=== PATIENT | female | born 1935 | race Caucasian/White ===

== ENCOUNTER 2018-04-11 18:18 | Emergency (ER) | payer OTHER ==
[~2018-04-11] VITALS: Ht 152.4 cm; Wt 57.6 kg
[2018-04-11 18:39] VITALS: Ht 152.4 cm; Wt 57.6 kg
[2018-04-11 21:41] LABS: BASOPHIL % 0.3 % (0-2); PLATELET COUNT 253 x10^3mcL (130-400); RED CELL DISTRIBUTION WIDTH 13.6 % (11.5-14.5)
[2018-04-11 21:49] LABS: CALCIUM 8.8 mg/dL (8.5-10.1); CARBON DIOXIDE 24.4 mmol/L (21-32); CHLORIDE SERUM 106 mmol/L (98-107); CREATININE SERUM 1.5 mg/dL (0.6-1.0); GLUCOSE SERUM 140 mg/dL (74-106); POTASSIUM SERUM 4.5 mmol/L (3.5-5.1); SODIUM SERUM 142 mmol/L (136-145)
[2018-04-11 21:56] LABS: ALBUMIN 4.4 g/dL (3.4-5.0); ALKALINE PHOSPHATASE 71 U/L (46-116); ALT/SGPT 18 U/L (14-59); AST/SGOT 13 U/L (15-37); BILIRUBIN TOTAL 0.4 mg/dL (0.20-1.00); TOTAL PROTEIN, SERUM 7.4 g/dL (6.4-8.2)
[2018-04-11 23:16] VITALS: BP 103/54
== END 2018-04-11 23:16 | disposition home or self-care (01) ==
LOC: ED 18:18
PROVIDERS: Emergency Medicine
DX: R11.2 Nausea with vomiting, unspecified (principal); R19.7 Diarrhea, unspecified; R42 Dizziness and giddiness; I10 Essential (primary) hypertension; E11.9 Type 2 diabetes mellitus without complications; E05.90 Thyrotoxicosis, unspecified without thyrotoxic crisis or storm
CPT/HCPCS: J2405; J7030

== ENCOUNTER 2018-04-27 20:18 | Inpatient (IN) | payer OTHER ==
[~2018-04-27] VITALS: Ht 152.4 cm; Wt 54.6 kg
[2018-04-27 20:21] VITALS: Ht 152.4 cm; Wt 54.6 kg
[2018-04-27 21:02] LABS: BASOPHIL % 0.5 % (0-2); PLATELET COUNT 285 x10^3mcL (130-400); RED CELL DISTRIBUTION WIDTH 13.6 % (11.5-14.5)
[2018-04-27 22:24] LABS: CALCIUM 9.1 mg/dL (8.5-10.1); CARBON DIOXIDE 18.2 mmol/L (21-32); CHLORIDE SERUM 106 mmol/L (98-107); CREATININE SERUM 1.3 mg/dL (0.6-1.0); GLUCOSE SERUM 160 mg/dL (74-106); POTASSIUM SERUM 3.9 mmol/L (3.5-5.1); SODIUM SERUM 140 mmol/L (136-145)
[2018-04-27 22:37] LABS: ALBUMIN 4.3 g/dL (3.4-5.0); ALKALINE PHOSPHATASE 97 U/L (46-116); ALT/SGPT 17 U/L (14-59); AST/SGOT 17 U/L (15-37); BILIRUBIN TOTAL 0.4 mg/dL (0.20-1.00); FREE T4 1.38 ng/dL (0.76-1.46); TOTAL PROTEIN, SERUM 7.4 g/dL (6.4-8.2)
[2018-04-27] MEDS ORDERED: LISINOPRIL10 MG PO (22:41)
[2018-04-27] MEDS ORDERED: GOOD SENSE OMEP20 MG PO (22:42)
[2018-04-27] MEDS ORDERED: DONEPEZIL HYDROC5 M3 PO (22:42)
[2018-04-27] MEDS ORDERED: VENLAFAXINE37.5 M2 PO (22:42)
[2018-04-27] MEDS ORDERED: METFORMIN HYDR500 M1 PO (22:42)
[2018-04-27 22:53] LABS: microscopic required? YES; urine erythrocyte TRACE (NEGATIVE)
[2018-04-27 23:51] VITALS: BP 125/66
[2018-04-28] VITALS (9 sets, daily range): BP systolic 103–148; BP diastolic 46–63
[2018-04-28 00:11] LABS: AMYLASE 50 U/L (25-115); LIPASE 188 IU/L (73-393)
[2018-04-28 00:22] LABS: FREE T4 1.41 ng/dL (0.76-1.46); FREE THYROXINE INDEX 3.7 ug/dL (1.4-4.5); T4(THYROXINE) 11.3 ug/dL (4.7-13.3)
[2018-04-28 00:36] LABS: T3 TOTAL 1.12 ng/mL
[2018-04-28 06:57] LABS: BASOPHIL % 0.7 % (0-2); PLATELET COUNT 224 x10^3mcL (130-400); RED CELL DISTRIBUTION WIDTH 13.9 % (11.5-14.5)
[2018-04-28 07:38] LABS: CALCIUM 8.7 mg/dL (8.5-10.1); CARBON DIOXIDE 25.3 mmol/L (21-32); CHLORIDE SERUM 109 mmol/L (98-107); CREATININE SERUM 1.3 mg/dL (0.6-1.0); GLUCOSE SERUM 146 mg/dL (74-106); HDL CHOLESTEROL 42 mg/dL (40-60); MAGNESIUM 2.1 mg/dL (1.8-2.4); PHOSPHOROUS 3.8 mg/dL (2.5-4.9); SODIUM SERUM 143 mmol/L (136-145)
[2018-04-28 10:33] LABS: CHOLESTEROL 181 mg/dL (<200); CHOLESTEROL/HDL RATIO 4.3; TRIGLYCERIDES 225 mg/dL (<150)
[2018-04-28] MEDS ORDERED: CLOPIDOGREL75 M1 PO (22:09)
[2018-04-28] MEDS ORDERED: METOPROLOL TART25 M1 PO (22:09)
[2018-04-28] MEDS ORDERED: LIPI10 PO (22:09)
[2018-04-28] MEDS ORDERED: ECO81 PO (22:10)
[2018-04-28] MEDS ORDERED: GLU500 PO (22:11)
== END 2018-04-28 22:48 | disposition short-term general hospital (02) | DRG 311 ==
LOC: ED 20:18 → DU 23:08
PROVIDERS: Emergency Medicine; Family Medicine
DX: I24.9 Acute ischemic heart disease, unspecified (principal); N17.0 Acute kidney failure with tubular necrosis; K21.9 Gastro-esophageal reflux disease without esophagitis; E86.0 Dehydration; E11.51 Type 2 diabetes mellitus with diabetic peripheral angiopathy without gangrene; F32.9 Major depressive disorder, single episode, unspecified; E03.9 Hypothyroidism, unspecified; R31.9 Hematuria, unspecified; I10 Essential (primary) hypertension; R80.9 Proteinuria, unspecified; D72.829 Elevated white blood cell count, unspecified; E78.5 Hyperlipidemia, unspecified; F03.90 Unspecified dementia, unspecified severity, without behavioral disturbance, psychotic disturbance, mood disturbance, and anxiety; Z68.24 Body mass index [BMI] 24.0-24.9, adult; Z79.84 Long term (current) use of oral hypoglycemic drugs; Z86.73 Personal history of transient ischemic attack (TIA), and cerebral infarction without residual deficits
CPT/HCPCS: 83880; 84439; J1642; J1644; J2060; J7030; Q0092

== ENCOUNTER 2019-01-28 12:17 | Emergency (ER) | payer OTHER, MEDICAID ==
[~2019-01-28] VITALS: Ht 149.9 cm; Wt 52.2 kg
[~2019-01-28 12:17] MED LIST: CLOPIDOGREL75 M1 PO; DONEPEZIL HYDROC5 M3 PO; ECO81 PO; GLU500 PO; GOOD SENSE OMEP20 MG PO; LIPI10 PO; LISINOPRIL10 MG PO; METFORMIN HYDR500 M1 PO; METOPROLOL TART25 M1 PO; VENLAFAXINE37.5 M2 PO
[2019-01-28 12:38] VITALS: Ht 149.9 cm; Wt 52.2 kg
[2019-01-28 13:48] LABS: BASOPHIL % 0.9 % (0-2); PLATELET COUNT 249 x10^3mcL (130-400)
[2019-01-28 13:49] LABS: CALCIUM 8.5 mg/dL (8.5-10.1); CARBON DIOXIDE 27.3 mmol/L (21-32); CHLORIDE SERUM 105 mmol/L (98-107); GLUCOSE SERUM 114 mg/dL (74-106); POTASSIUM SERUM 3.6 mmol/L (3.5-5.1); SODIUM SERUM 140 mmol/L (136-145)
[2019-01-28 13:55] LABS: ALBUMIN 3.7 g/dL (3.4-5.0); ALKALINE PHOSPHATASE 68 U/L (46-116); ALT/SGPT 26 U/L (14-59); AST/SGOT 20 U/L (15-37)
[2019-01-28 14:40] LABS: UA SPECIFIC GRAVITY 1.015 (1.005-1.035); microscopic required? YES; urine erythrocyte 1+ (NEGATIVE)
[2019-01-28 15:15] VITALS: BP 135/91
== END 2019-01-28 15:15 | disposition home or self-care (01) ==
LOC: ED 12:17
PROVIDERS: Emergency Medicine
DX: J06.9 Acute upper respiratory infection, unspecified (principal); I10 Essential (primary) hypertension; E11.9 Type 2 diabetes mellitus without complications; E03.9 Hypothyroidism, unspecified; F32.9 Major depressive disorder, single episode, unspecified
CPT/HCPCS: 36415; 87804; Q0092

== ENCOUNTER 2019-05-23 12:48 | Emergency (ER) | payer OTHER, MEDICAID ==
[~2019-05-23] VITALS: Ht 152.4 cm; Wt 53.5 kg
[2019-05-23 13:01] VITALS: Ht 152.4 cm; Wt 53.5 kg
[2019-05-23 14:08] VITALS: BP 124/70
== END 2019-05-23 14:08 | disposition home or self-care (01) ==
LOC: ED 12:48
DX: M25.552 Pain in left hip (principal); I10 Essential (primary) hypertension; Z95.1 Presence of aortocoronary bypass graft; Z90.710 Acquired absence of both cervix and uterus; Z90.49 Acquired absence of other specified parts of digestive tract
CPT/HCPCS: J1885

== ENCOUNTER 2019-10-08 13:31 | Emergency (ER) | payer BC, MEDICAID ==
[~2019-10-08] VITALS: Ht 165.1 cm; Wt 54.7 kg
[2019-10-08 15:09] VITALS: Ht 165.1 cm; Wt 54.7 kg
[2019-10-08 16:58] VITALS: BP 157/61
== END 2019-10-08 17:41 | disposition home or self-care (01) ==
LOC: ED 13:31
DX: J06.9 Acute upper respiratory infection, unspecified (principal); I10 Essential (primary) hypertension; E11.9 Type 2 diabetes mellitus without complications; F32.9 Major depressive disorder, single episode, unspecified; E05.90 Thyrotoxicosis, unspecified without thyrotoxic crisis or storm